=== PATIENT | female | born 1940 | race Caucasian/White ===

== ENCOUNTER → 2018-06-14 | Outpatient (CLI) | payer MEDICARE, BC | END | disposition home or self-care (01) | LOC: PCVCCLINIC 11:10 | PROVIDERS: ATTEND Internal Medicine | DX: I10 Essential (primary) hypertension (principal); R07.9 Chest pain, unspecified; R06.09 Other forms of dyspnea; Z79.82 Long term (current) use of aspirin | CPT/HCPCS: 93005; G0463 ==

== ENCOUNTER → 2018-06-16 | Outpatient (CLI) | payer MEDICARE, BC ==
[~2018-06-16] MED LIST: REGADENOSON 0.4 MG/5 ML DISP.SYRIN. IV ONE
--- NOTE | 2018-06-16 10:28 | PCVCIMAG ---
APPROVED REPORT Study performed: 06/16/2018 07:46:28 EXAM: Comprehensive 2D, Doppler, and color-flow Echocardiogram Patient Location: Echo lab Status: routine BSA: 1.73 HR: 56 bpmBP: 130/76 mmHg Rhythm: Bradycardia Other Information Study Quality: Adequate Risk Factors: Cardiac Risk Factors: HTN Indications Dyspnea Chest Pain 2D Dimensions IVSd: 9.71 (7-11mm) LVDd: 36.34 mm PWd: 8.80 (7-11mm) LVDs: 25.96 (25-40mm) Left Atrium: 33.04 (27-40mm) Aortic Root: 28.99 mm LV Single Plane 4CH: 62.75 % LV Single Plane 2CH: 65.11 % Biplane EF: 64.2 % Volumes Left Atrial Volume (Systole) Single Plane 4CH: 53.34 mLSingle Plane 2CH: 54.34 mL LA ESV Index: 31.00 mL/m2 Aortic Valve AoV Peak Greg.: 1.47 m/s AO Peak Gr.: 8.69 mmHgLVOT Max P.97 mmHg LVOT Max V: 1.00 m/s Mitral Valve E/A Ratio: 1.4 MV Decel. Time: 203.53 ms MV E Max Greg.: 1.00 m/s MV A Greg.: 0.74 m/s IVRT: 107.27 ms Pulmonary Valve PV Peak Greg.: 0.79 m/sPV Peak Gr.: 2.51 mmHg Pulmonary Vein P Vein S: 0.40 m/sP Vein A: 0.27 m/s P Vein D: 0.45 m/sP Vein A Dur.: 96.9 msec P Vein S/D Ratio: 0.89 Tricuspid Valve TR Peak Greg.: 2.53 m/s TR Peak Gr.: 25.65 mmHg Left Ventricle The left ventricle is normal size. There is normal LV segmental wall motion. There is normal left ventricular wall thickness. Left ventricular systolic function is normal. The left ventricular ejection fraction is within the normal range. LVEF is 60-65%. Grade II - pseudonormal filling dynamics. Right Ventricle The right ventricle is normal size. The right ventricular systolic function is normal. Atria The left atrium size is normal. The right atrium size is normal. Aortic Valve The aortic valve is normal in structure. Trace aortic regurgitation. There is no aortic valvular stenosis. Mitral Valve The mitral valve is normal in structure. Trace mitral regurgitation. No evidence of mitral valve stenosis. Tricuspid Valve The tricuspid valve is normal in structure. Mild tricuspid regurgitation with PAP of 33 mmHg. Pulmonic Valve The pulmonary valve is normal in structure. There is no pulmonic valvular regurgitation. Great Vessels The aortic root is normal in size. IVC is normal in size and collapses >50% with inspiration. Pericardium There is no pericardial effusion. There is no pleural effusion. <Conclusion> The left ventricle is normal size. LVEF is 60-65%. The aortic valve is normal in structure. Trace aortic regurgitation. The mitral valve is normal in structure. Trace mitral regurgitation. The tricuspid valve is normal in structure. Mild tricuspid regurgitation with PAP of 33 mmHg. There is no pericardial effusion.
--- NOTE | 2018-06-16 12:36 | PCVCIMAG ---
APPROVED REPORT Imaging Protocol: Rest Tc-99m/Stress Tc-99m 1 day Study performed: 06/16/2018 09:14:59 Indication: Chest pressure, Dyspnea Patient Location: Out-Patient Stress Nurse: Sarah Miranda RN [place] Tech:Elbakaia Ibrahim [facility] Ht: 5 ft 2 in Wt: 159 lbs BSA: 1.73 m2 HR: 69 bpm BP: 169/79 mmHg BMI: 29.0 Rhythm: Sinus Rhythm Medical History Medical History: HTN, Hyperlipidemia, Diabetes Medications: Aspirin, Symbicort, Losartan, Meclizine, Metformin, Singulair, Tramadol Allergies: Lisinopril Cardiac Risk Factors: Age Pretest Chest Pain Characteristics: No chest pain Exercise History: Sedentary Physical Disabilities: Hips Resting Data Rest SPECT myocardial perfusion imaging was performed in supine position 45 minutes following the intravenous injection of 11.1 mCi of Tc-99m Sestamibi. Time of rest injection: 0915 Administration Route: IV Administration Site: Right AC Pharmacologic Stress Pharmacologic stress test was performed by injecting Regadenoson 0.4 mg IV push over 10-15 seconds immediately followed by the intravenous injection of 32.3 mCi of Tc-99m Sestamibi. Time of stress injection: 1030 Administration Route: IV Administration Site: Right AC Gated Stress SPECT was performed 45 minutes after stress injection. The images were gated to evaluate regional wall motion and calculate left ventricular ejection fraction. Stress Test Details Stress Test: Pharmacologic stress testing performed using 0.4 mg of regadenoson per 5 mL given IV over 10 seconds. Reason for pharmacologic stress test: physical limitation, hip pain and unsteady gait. HRMax Heart Rate (APMHR): 143 bpm Resting HR: 69 bpmTarget HR (85% APMHR): 121 bpm Max HR Achieved: 86 bpm % of APMHR: 60 Recovery HR: 75 bpm BP Resting BP: 169/79 mmHg Recovery BP: 134/66 mmHg ECG Resting ECG: Sinus Rhythm, 1st degree AV block Stress ECG: Sinus Rhythm, 1st degree AV block ST Change: None Maximum ST Deviation: 0 mm Arrhythmia: None Recovery ECG: Sinus Rhythm 1st degree AV block Clinical Reason for Termination: Completed protocol Stress Symptoms: Abdominal discomfort, Mild chest pressure, Dyspnea Exercise duration: 0 min 55 sec Symptoms resolved during recovery. Stress ECG Conclusion 1. Adequate response to iv lexiscan 2. Inadequate heart rate for ECG diagnosis Study Data Post stress, the left ventricular ejection was 81%.. SSS: 1 SRS: 1 SDS: 0 TID = 0.97. Perfusion There is a small area of mildly reduced uptake in the apical segment of the apex and adjacent wall which is seen on the stress images as well as the resting images. This area thickens and moves normally and is most consistent with attenuation artifact. Wall Motion Normal left ventricular wall motion. Nuclear Conclusion ECG Findings: non-diagnostic Clinical Findings: negative for ischemia Nuclear Findings: negative for ischemia Exercise Capacity: not assessed Left Ventricular Function: normal 1. Low Risk Study Interpreted by: Giuseppe Talbot MD Electronically Approved: 06/16/2018 12:35:12 <Conclusion> 1. Adequate response to iv lexiscan 2. Inadequate heart rate for ECG diagnosis
== END | disposition home or self-care (01) ==
LOC: PCVCIMAG 10:40
PROVIDERS: ATTEND Internal Medicine
DX: I07.1 Rheumatic tricuspid insufficiency (principal); I10 Essential (primary) hypertension; R07.89 Other chest pain; R06.09 Other forms of dyspnea; E11.9 Type 2 diabetes mellitus without complications
CPT/HCPCS: 78452; 93017; 93306; A9500; J2785

== ENCOUNTER → 2018-07-01 | Outpatient (CLI) | payer MEDICARE, BC | LOC: PCVCCLINIC 12:58 | PROVIDERS: ATTEND Internal Medicine | DX: I10 Essential (primary) hypertension (principal); R00.2 Palpitations; R06.00 Dyspnea, unspecified | CPT/HCPCS: G0463 ==

== ENCOUNTER → 2018-08-19 | Outpatient (CLI) | payer MEDICARE, BC | END | disposition home or self-care (01) | LOC: PCVCCLINIC 10:35 | PROVIDERS: ATTEND Internal Medicine | DX: I10 Essential (primary) hypertension (principal); R00.2 Palpitations; E78.5 Hyperlipidemia, unspecified; E11.9 Type 2 diabetes mellitus without complications; K21.9 Gastro-esophageal reflux disease without esophagitis; Z79.82 Long term (current) use of aspirin; Z79.84 Long term (current) use of oral hypoglycemic drugs | CPT/HCPCS: G0463 ×2 ==